=== PATIENT | female | born 1960 | race Caucasian/White ===

== ENCOUNTER 2022-08-30 12:50 | Emergency (ER) | payer MEDICAID, SELFPAY ==
[2022-08-30 13:01] VITALS: BP 158/101; PULSE 74; RESP 20; TEMP 36.8; O2SAT 96
--- NOTE | 2022-08-30 13:12 | CRLHL7_ITS ---
For Patients: As a result of the Cures Act, medical imaging exams and procedure reports are released immediately into your electronic medical record. You may view this report before your referring provider. If you have questions, please contact your health care provider. Indication: Trauma, bruising. Technique: Left foot 3 views. Comparison: None. FINDINGS/IMPRESSION: Acute complete comminuted fracture through the distal and mid 3rd shaft of the 5th metatarsal with medial angulation of the distal fracture fragment. Associated soft tissue swelling. Joint spaces are maintained. Bony mineralization is age appropriate. Dictated by Nicho Shields MD @ 08/30/2022 2:25:09 PM (Electronically Signed)
--- NOTE | 2022-08-30 13:14 | ED.GENADULT ---
HPI - General Adult General Chief complaint: Extremity Pain/Injury, Lower Stated complaint: tripped, left foot pain Time Seen by Provider: 08/30/22 12:51 Source: patient Mode of arrival: ambulatory Limitations: no limitations History of Present Illness HPI narrative: 62-year-old female comes in today with foot pain. States that she was out in the garden a few hours ago when she tripped and fell sideways landing on the side of her foot. She has been able to walk but it has been extremely painful. The pain is not gotten any better in the last few hours so she came in for evaluation. She denies any other injury. Related Data Allergies Allergy/AdvReac Type Severity Reaction Status Date / Time codeine Allergy Verified 08/30/22 12:57 Review of Systems Status of ROS: Reports: 6 or more systems reviewed and unremarkable except as noted in History and below PFSH [facility] Social History Smoking Status: Former smoker What tobacco products do you use: cigarettes Smoking quit date/years: <= 15 years ago How often do you have a drink containing alcohol: monthly or less AUDIT-C Alcohol total score: 1 Non-prescribed substance use: denies use service: No Exam Narrative: Exam Narrative: Well-nourished well-developed patient in no acute distress. Alert and oriented. Answers questions appropriately. Mood and affect are appropriate. Thoughts are goal oriented and rational. No tangential or magical thinking noted. Patient speaks in full sentences without needing to catch her breath. She does not appear ill or toxic. HEENT: Normocephalic atraumatic. Pupils are equally round reactive to light. Extraocular muscles are intact. Conjunctivae are moist without any icterus noted. Moist mucous membranes. Extremities: Bilateral lower extremities are without edema. Normal DP and PT pulses. On the left lateral distal foot, just proximal to the 4th and 5th phalanx, she has an area about the size of a half-dollar but is ecchymotic and swollen, quite tender. Skin: Well perfused without any obvious rashes. Const: Vital Signs, click to edit/add: Vital Signs - 24 hr 08/30/22 13:01 Temperature 98.3 F Pulse Rate [Right Pulse Oximeter] 74 Respiratory Rate 20 Blood Pressure [Ri ght Upper Arm] 158/101 H Pulse Oximetry 96 Oxygen Delivery Me thod Room Air Course Course Hospital Course: Patient was sent x-ray. X-ray, read by me, shows a fracture of the shaft of the 5th meta tarsal. Radiological read pending. Consult was done with orthopedic WILL, madai recommended, nonweightbearing and follow-up. Vital Signs Vital signs: Initial Vital Signs Temperature 98.3 F 08/30/22 13:01 Temperature Source Temporal Artery Scan 08/30/22 13:01 Pulse Rate 74 08/30/22 13:01 Respiratory Rate 20 08/30/22 13:01 Blood Pressure 158/101 H 08/30/22 13:01 Blood Pressure Mean 120 H 08/30/22 13:01 Blood Pressure Position Sitting 08/30/22 13:01 Pulse Oximetry 96 08/30/22 13:01 Oxygen Delivery Method Room Air 08/30/22 13:01 Vital Signs Temperature 98.3 F 08/30/22 13:01 Pulse Rate 74 08/30/22 13:01 Respiratory Rate 20 08/30/22 13:01 Blood Pressure 158/101 H 08/30/22 13:01 Pulse Oximetry 96 08/30/22 13:01 Oxygen Delivery Method Room Air 08/30/22 13:01 Temperature 98.3 F 08/30/22 13:01 Pulse Rate 74 08/30/22 13:01 Respiratory Rate 20 08/30/22 13:01 Blood Pressure 158/101 H 08/30/22 13:01 Pulse Oximetry 96 08/30/22 13:01 Oxygen Delivery Method Room Air 08/30/22 13:01 Medical Decision Making MDM Narrative Medical decision making narrative: 62-year-old female with fracture of the shaft of the 5th metatarsal. Plan per above. Discharge Plan Discharge Clinical Impression: Fracture of 5th metatarsal Patient Disposition: Home, Self-Care Condition: Stable Additional Instructions: Wear boot at all times, do not bear weight on that side. Use your crutches. Follow-up with orthopedics within a week. Okay to use Tylenol as needed. Stand Alone [facility]
== END 2022-08-30 14:21 | disposition home or self-care (01) ==
PROVIDERS: Emergency Provider Family Medicine
DX: S92.525A Nondisplaced fracture of middle phalanx of left lesser toe(s), initial encounter for closed fracture (principal); W01.0XXA Fall on same level from slipping, tripping and stumbling without subsequent striking against object, initial encounter
CPT/HCPCS: 73630; 99283; 99284

== ENCOUNTER 2022-09-12 07:13 | Day surgery (SDC) | payer MEDICAID, SELFPAY ==
[2022-09-12] VITALS (13 sets, daily range): BP systolic 115–141; BP diastolic 78–94; PULSE 76–84; RESP 14–16; TEMP 36.6–37; O2SAT 95–98; BMI 28.3
[2022-09-12] MEDS: LACTATED RINGERS 1000 ML 1,000 ML 100 ML IV (07:20)
[2022-09-12] MEDS: SODIUM CHLORIDE 0.9 % (FLUSH) 10 ML SYRINGE IVF (07:48)
[2022-09-12] MEDS: fentaNYL 100 MCG/2 ML inj IVP (08:47)
[2022-09-12] MEDS: MIDAZOLAM HCL 1 MG/ML inj IVP (08:47)
--- NOTE | 2022-09-12 08:49 | SUR.PREOP ---
TIME?OUT:?0857 PT/Beverly Diaz RN/Dr. Elijah MDA?VERIFICATION?OF?SURGICAL?SITE left foot,?PROCEDURE,?AND?CONSENT OBTAINED?PRIOR?TO?INVASIVE?PROCEDURE.
--- NOTE | 2022-09-12 08:56 | P.NB_ITS ---
Nerve Block Nerve Block Time Seen by Provider: 08:47 Date Seen: 09/12/22 Type of block requested by surgeon for post-operative analgesia: popliteal Side: left Time out performed: Yes Verification of patient name: Yes Verification of date of : Yes Site marking: site marked Name of person performing procedure: Elijah Continuous monitoring Was continuous monitoring of O2 sat, B/P, nuclear monitoring technician, recorded every 15 minutes?: Yes Procedure Checklist: sterile prep, needles and gloves Ultrasound guided. Images saved: Yes Medications given in 5ml increments after negative aspiration: Ropivicaine %: 0.5 mL: 20 Needle gauge: 22 Patient tolerated procedure well: Yes Additional comments: Needle noted adjacent to nerve Block Charges Block Charge (with Pro Fee): Sciatic Nerve Use of Ultrasound Machine for Block: Yes- US Guidance/pain block
--- NOTE | 2022-09-12 08:56 | W.ANESCHARGE ---
Anesthesia Charges Start Date/Time Anesthesia Start Date: 09/12/22 Anesthesia Start Time: 09:14 Stop Date/Time Anesthesia Stop Date: 09/12/22 Anesthesia Stop Time: 10:47
[2022-09-12] MEDS: CEFAZOLIN 2 GM in 0.9 % SODIUM CHLORIDE Mini-bag 100 ML IVPB (09:14)
--- NOTE | 2022-09-12 09:30 | CRLHL7_ITS ---
For Patients: As a result of the Cures Act, medical imaging exams and procedure reports are released immediately into your electronic medical record. You may view this report before your referring provider. If you have questions, please contact your health care provider. Indication: ORIF left 5th metatarsal fracture Technique: Five fluoroscopic images of the left foot. Fluoroscopic time 6.3 seconds. IMPRESSION: Fluoroscopic guidance for open reduction internal fixation of the left 5th metatarsal. Dictated by Nicho Flower MD @ 09/12/2022 11:29:57 AM (Electronically Signed)
--- NOTE | 2022-09-12 10:29 | P.ORPRC_ITS ---
Procedure Note Date of procedure: 09/12/22 Procedure: PREOPERATIVE DIAGNOSES: 1. Left 5th metatarsal fracture, closed, acute, shortened, comminuted, displaced POSTOPERATIVE DIAGNOSES: 1. Left 5th metatarsal fracture, closed, acute, shortened, comminuted, displaced NAME OF OPERATION: 1. Left 5th metatarsal open reduction and internal fixation 2. 61187 - intraoperative fluoroscopy up to 1 hour. SURGEON: Sohail Mendoza MD DATA WAREHOUSE DEVELOPER: Junior BARLOWC ANESTHESIA: Popliteal block plus MAC IMPLANTS: Synthes mini frag 2.0 mm cortical locking and nonlocking screws (multiple); 1.5 mm nonlocking cortical screw (x1); mini frag plate (x1) TOURNIQUET: 30 min at 225 torr. INDICATIONS: The patient is a pleasant, 62-year-old female who sustained a left 5th metatarsal fracture recently. They were evaluated at a medical facility. X-rays revealed the fracture that was shortened and displaced and comminuted. They had difficulty with use of the extremity. Given these findings and consistent with the patient's request, surgery was recommended to improve the position and stablize the fracture. FINDINGS: Left closed, displaced, comminuted, shortened 5th metatarsal fracture. PROCEDURE: Following a thorough discussion of risks, benefits, and alternatives, consent was obtained and the operative extremity was marked. The patient was brought to the operating room and placed supine on the operating table. Induction of anesthesia was achieved. Appropriate time out was performed identifying proper patient, site and procedure. 1 g IV Ancef was administered within 1 hour of incision preoperatively. The left lower extremity was prepped and draped in the appropriate sterile fashion using ChloraPrep prep. The limb was exsanguinated and the tourniquet inflated. A longitudinal incision was made overlying the affected metatarsal. Sharp incision through skin and blunt dissection through subcutaneous tissue allowed immediate identification of the fracture. The fracture was cleared of fracture hematoma and interposed periosteum. The fracture was reduced. 1st the butterfly fragment was reduced and secured with interfragmentary screws are (x2) of different sizes due to the taper size of the fragment. Thereafter, the metatarsal head was reduced against the shaft and a plate was s elected, cut, filed, contoured, and applied to the bone. 2.0 mm screws were placed 1st in the shaft and finally in the metatarsal head. Excellent stabilization to the fracture was achieved. C-arm confirmed improved alignment of the fracture and proper plate and screw position and screw length. At this stage, the wound was thoroughly irrigated with normal saline. Closure performed with 3-0 Vicryl for the periosteum reapproximation and synovial barrier over the EDC tendon, and for subcutaneous closure. 4-0 Monocryl for subcuticular closure. Tourniquet deflated, radial gutter splint applied, and the patient woken from anesthesia and transferred the PACU in stable condition. PLAN: 1. Elevate operative extremity. 2. Ice, acetominphen or ibuprofen PRN. 3. Percocet for pain as needed. 4. Follow up with PA visit in 7-10 days for splint removal, wound check, and transition back to the short cam boot that she already has. Then follow-up at the 5 week partha from surgery with me with repeat x-rays left foot-3 views.
--- NOTE | 2022-09-12 10:49 | W.ANESCHARGE ---
Anesthesia Charges Start Date/Time Anesthesia Start Date: 09/12/22 Anesthesia Start Time: 09:14 Stop Date/Time Anesthesia Stop Date: 09/12/22 Anesthesia Stop Time: 10:47
== END 2022-09-12 12:12 | disposition home or self-care (01) ==
PROVIDERS: PCP Family Medicine; Visit Provider Orthopaedic Surgery Sports Medicine
PROC: (CPT 28485; principal; 2022-09-12 09:30)
DX: S92.352A Displaced fracture of fifth metatarsal bone, left foot, initial encounter for closed fracture (principal); G89.18 Other acute postprocedural pain
CPT/HCPCS: 28485; 01480; 64445; 73630; 76000; 76942; A4580; C1713; J0690; J1100; J2250; J2405; J2704; J2795; J3010; J7120